=== PATIENT | female | born 1970 | race Caucasian/White ===

== ENCOUNTER 2017-11-16 09:46 | Emergency (ER) | payer OTHER ==
[~2017-11-16] VITALS: Ht 160 cm; Wt 90.7 kg
[~2017-11-16 09:46] MED LIST: BACTRIM DS TAB1 EACH PO; BENZONATATE200 M1 PO; DIAZEPAM10 MG PO; GILTUSS TR TAB1 EACH PO; HYDRODIURIL PO; LEVAQUIN750 MG PO; LOTREL 5-10 MG1 CAP; Mucinex 600 MG TABLET.SA PO; NEURONTIN300 MG PO; NORVASC 10 MG TAB PO; NORVASC 5MG TAB PO; PEPCID40 MG PO; PHENERGAN25 MG PO; PYRIDIUM100 M1 PO; TOPROL XL25 M1; TOPROL XL25 M1 PO; VASOTEC 20MG TAB PO
[2017-11-16] MEDS ORDERED: TUSSI-PRES LIQ118 ML PO (11:23)
[2017-11-16] MEDS ORDERED: NASONEX17 GM TOP (11:23)
== END 2017-11-17 14:29 | disposition home or self-care (01) ==
LOC: ER 09:46
DX: J32.8 Other chronic sinusitis (principal)

== ENCOUNTER 2018-12-01 08:56 | Outpatient (CLI) | payer OTHER ==
[~2018-12-01 08:56] MED LIST changes: +NASONEX17 GM TOP; +TUSSI-PRES LIQ118 ML PO
== END 2018-12-01 09:01 | disposition home or self-care (01) ==
LOC: LAB 08:56
DX: E11.9 Type 2 diabetes mellitus without complications (principal); I10 Essential (primary) hypertension; Z00.00 Encounter for general adult medical examination without abnormal findings; E78.49 Other hyperlipidemia

== ENCOUNTER 2018-12-01 09:46 | Outpatient (CLI) | payer OTHER | END 2018-12-01 09:56 | disposition home or self-care (01) | LOC: MAMO-SONO 09:46 | DX: N64.4 Mastodynia (principal); Z12.31 Encounter for screening mammogram for malignant neoplasm of breast ==

== ENCOUNTER → 2019-07-18 06:19 | Outpatient (CLI) | payer OTHER | END | disposition home or self-care (01) | LOC: LAB 06:19 | DX: E78.49 Other hyperlipidemia (principal); E55.9 Vitamin D deficiency, unspecified ==

== ENCOUNTER → 2019-07-21 07:56 | Outpatient (CLI) | payer OTHER | END | disposition home or self-care (01) | LOC: LAB 07:56 | DX: E78.49 Other hyperlipidemia (principal); E55.9 Vitamin D deficiency, unspecified; R42 Dizziness and giddiness; Z00.00 Encounter for general adult medical examination without abnormal findings ==

== ENCOUNTER 2019-09-07 15:00 | Outpatient (CLI) | payer OTHER | END 2019-09-07 15:06 | disposition home or self-care (01) | LOC: LAB 15:00 | DX: N39.0 Urinary tract infection, site not specified (principal) ==

== ENCOUNTER 2019-09-08 06:37 | Outpatient (CLI) | payer OTHER | END 2019-09-08 06:41 | disposition home or self-care (01) | LOC: LAB 06:37 | DX: E78.49 Other hyperlipidemia (principal); Z00.00 Encounter for general adult medical examination without abnormal findings; E55.9 Vitamin D deficiency, unspecified; E11.9 Type 2 diabetes mellitus without complications ==

== ENCOUNTER → 2020-03-25 07:37 | Outpatient (CLI) | payer OTHER | END | disposition home or self-care (01) | LOC: LAB 07:37 | PROVIDERS: ATTEND Internal Medicine Cardiovascular Disease | DX: E03.8 Other specified hypothyroidism (principal); E11.9 Type 2 diabetes mellitus without complications; I10 Essential (primary) hypertension; E78.2 Mixed hyperlipidemia ==

== ENCOUNTER 2020-03-28 09:31 | Outpatient (CLI) | payer OTHER | END 2020-03-28 16:12 | disposition home or self-care (01) | LOC: CERTIFICAD 09:31 | DX: Z11.1 Encounter for screening for respiratory tuberculosis (principal) ==

== ENCOUNTER 2020-05-11 12:00 | Outpatient (CLI) | payer OTHER | END 2020-05-11 16:10 | disposition home or self-care (01) | LOC: PPH VACUNA 12:00 | DX: Z23 Encounter for immunization (principal) ==

== ENCOUNTER → 2021-01-30 06:54 | Outpatient (CLI) | payer OTHER | END | disposition home or self-care (01) | LOC: LAB 06:54 | PROVIDERS: ATTEND Internal Medicine Cardiovascular Disease | DX: I10 Essential (primary) hypertension (principal); E11.9 Type 2 diabetes mellitus without complications; E03.9 Hypothyroidism, unspecified; E55.9 Vitamin D deficiency, unspecified ==

== ENCOUNTER → 2021-02-01 | Outpatient (CLI) | payer OTHER | END | disposition home or self-care (01) | LOC: MAMO-SONO 07:05 | PROVIDERS: ATTEND Internal Medicine Cardiovascular Disease | DX: N63.11 Unspecified lump in the right breast, upper outer quadrant (principal) ==

== ENCOUNTER 2021-05-28 08:00 | Outpatient (CLI) | payer OTHER | END 2021-05-28 08:30 | disposition home or self-care (01) | LOC: PPH VACUNA 08:00 | PROVIDERS: ATTEND Emergency Medicine Pediatric Emergency Medicine | DX: Z23 Encounter for immunization (principal) ==

== ENCOUNTER 2021-07-08 11:55 | Outpatient (CLI) | payer OTHER | END 2021-07-08 12:00 | disposition home or self-care (01) | LOC: PPH VACUNA 11:55 | PROVIDERS: ATTEND Emergency Medicine Pediatric Emergency Medicine | DX: Z23 Encounter for immunization (principal) ==

== ENCOUNTER 2021-07-25 06:52 | Outpatient (CLI) | payer OTHER | END 2021-07-25 07:15 | disposition home or self-care (01) | LOC: SONOGRAMA 06:52 | PROVIDERS: ATTEND Specialist | DX: N92.0 Excessive and frequent menstruation with regular cycle (principal) ==

== ENCOUNTER 2021-11-12 06:08 | Outpatient (CLI) | payer OTHER | END 2021-11-12 06:09 | disposition home or self-care (01) | LOC: LAB 06:08 | PROVIDERS: ATTEND Internal Medicine Cardiovascular Disease | DX: E03.9 Hypothyroidism, unspecified (principal); I10 Essential (primary) hypertension; E11.9 Type 2 diabetes mellitus without complications; E78.2 Mixed hyperlipidemia; E55.9 Vitamin D deficiency, unspecified ==

== ENCOUNTER 2022-01-27 07:08 | Outpatient (CLI) | payer OTHER | END 2022-01-27 07:12 | disposition home or self-care (01) | LOC: LAB 07:08 | PROVIDERS: ATTEND Preventive Medicine Occupational Medicine | DX: U07.1 COVID-19 (principal) ==

== ENCOUNTER 2022-01-30 08:51 | Outpatient (CLI) | payer OTHER | END 2022-01-30 08:54 | disposition home or self-care (01) | LOC: LAB 08:51 | DX: U07.1 COVID-19 (principal) ==

== ENCOUNTER 2022-03-03 08:36 | Emergency (ER) | payer OTHER ==
[~2022-03-03] VITALS: Ht 160 cm; Wt 89.8 kg
[2022-03-03] MEDS ORDERED: GLUMETZA1000 MG PO (08:56)
== END 2022-03-03 16:23 | disposition home or self-care (01) ==
LOC: ER 08:36
DX: S91.322A Laceration with foreign body, left foot, initial encounter (principal); W26.9XXA Contact with unspecified sharp object(s), initial encounter; Y93.9 Activity, unspecified; Y92.019 Unspecified place in single-family (private) house as the place of occurrence of the external cause

== ENCOUNTER 2022-04-23 08:21 | Outpatient (CLI) | payer OTHER ==
[~2022-04-23 08:21] MED LIST changes: +GLUMETZA1000 MG PO
== END 2022-04-23 08:26 | disposition home or self-care (01) ==
LOC: PPH VACUNA 08:21
PROVIDERS: ATTEND Emergency Medicine Pediatric Emergency Medicine
DX: Z23 Encounter for immunization (principal)

== ENCOUNTER 2022-09-18 09:07 | Outpatient (CLI) | payer OTHER ==
[2022-09-18] MEDS ORDERED: HYDRODIURIL12.5 MG (12:55)
[2022-09-18] MEDS ORDERED: PEPCID AC20 MG PO (12:56)
== END 2022-09-18 09:30 | disposition home or self-care (01) ==
LOC: MAMO-SONO 09:07
PROVIDERS: ATTEND Internal Medicine Cardiovascular Disease
DX: N63.11 Unspecified lump in the right breast, upper outer quadrant (principal)

== ENCOUNTER 2022-09-18 12:34 | Emergency (ER) | payer OTHER ==
[~2022-09-18] VITALS: Ht 160 cm; Wt 90.7 kg
[2022-09-18] MEDS ORDERED: HYDRODIURIL12.5 MG (12:55)
[2022-09-18] MEDS ORDERED: PEPCID AC20 MG PO (12:56)
== END 2022-09-18 16:31 | disposition home or self-care (01) ==
LOC: ER 12:34
DX: R10.13 Epigastric pain (principal); K21.9 Gastro-esophageal reflux disease without esophagitis; Z88.8 Allergy status to other drugs, medicaments and biological substances; E11.9 Type 2 diabetes mellitus without complications; Z79.84 Long term (current) use of oral hypoglycemic drugs; E78.00 Pure hypercholesterolemia, unspecified; I10 Essential (primary) hypertension

== ENCOUNTER → 2022-09-22 06:31 | Outpatient (CLI) | payer OTHER ==
[~2022-09-22 06:31] MED LIST changes: +HYDRODIURIL12.5 MG; +PEPCID AC20 MG PO
== END | disposition home or self-care (01) ==
LOC: LAB 06:31
PROVIDERS: ATTEND Internal Medicine Cardiovascular Disease
DX: I10 Essential (primary) hypertension (principal); E11.9 Type 2 diabetes mellitus without complications; E03.9 Hypothyroidism, unspecified; E78.2 Mixed hyperlipidemia; E55.9 Vitamin D deficiency, unspecified; R10.9 Unspecified abdominal pain

== ENCOUNTER 2022-11-05 05:00 | Day surgery (SDC) | payer OTHER | END 2022-11-05 10:35 | disposition home or self-care (01) | LOC: AMB-ENDOS 05:00 | PROVIDERS: ATTEND Colon & Rectal Surgery | DX: R19.5 Other fecal abnormalities (principal); K64.8 Other hemorrhoids; K21.9 Gastro-esophageal reflux disease without esophagitis; K29.60 Other gastritis without bleeding; K44.9 Diaphragmatic hernia without obstruction or gangrene; Z20.822 Contact with and (suspected) exposure to COVID-19 ==

== ENCOUNTER 2022-11-14 20:05 | Emergency (ER) | payer OTHER ==
[~2022-11-14] VITALS: Ht 160 cm; Wt 88.9 kg
== END 2022-11-14 20:56 | disposition home or self-care (01) ==
LOC: ER 20:05
DX: L29.9 Pruritus, unspecified (principal); Z88.5 Allergy status to narcotic agent

== ENCOUNTER 2022-12-05 06:19 | Outpatient (CLI) | payer OTHER | END 2022-12-05 06:20 | disposition home or self-care (01) | LOC: LAB 06:19 | PROVIDERS: ATTEND Colon & Rectal Surgery | DX: E03.9 Hypothyroidism, unspecified (principal); E11.9 Type 2 diabetes mellitus without complications; I10 Essential (primary) hypertension; E78.2 Mixed hyperlipidemia ==

== ENCOUNTER 2023-01-12 06:10 | Emergency (ER) | payer OTHER ==
[~2023-01-12] VITALS: Ht 160 cm; Wt 86.6 kg
[2023-01-12] MEDS ORDERED: RYBELSUS3 MG PO (06:17)
[2023-01-12] MEDS ORDERED: KETO10TA2 PO (07:32)
[2023-01-12] MEDS ORDERED: ORPHENADRINE C100 MG PO (07:32)
== END 2023-01-12 07:41 ==
LOC: ER 06:10
DX: S76.311A Strain of muscle, fascia and tendon of the posterior muscle group at thigh level, right thigh, initial encounter (principal); W01.0XXA Fall on same level from slipping, tripping and stumbling without subsequent striking against object, initial encounter; Y93.89 Activity, other specified; Y92.098 Other place in other non-institutional residence as the place of occurrence of the external cause; Y99.8 Other external cause status; Z88.5 Allergy status to narcotic agent

== ENCOUNTER 2023-04-21 06:05 | Outpatient (CLI) | payer OTHER ==
[~2023-04-21 06:05] MED LIST changes: +KETO10TA2 PO; +ORPHENADRINE C100 MG PO; +RYBELSUS3 MG PO
== END 2023-04-21 06:10 | disposition home or self-care (01) ==
LOC: LAB 06:05
PROVIDERS: ATTEND Internal Medicine Endocrinology, Diabetes & Metabolism
DX: E11.8 Type 2 diabetes mellitus with unspecified complications (principal); E78.00 Pure hypercholesterolemia, unspecified; Z88.5 Allergy status to narcotic agent; Z88.6 Allergy status to analgesic agent

== ENCOUNTER 2024-04-27 22:37 | Emergency (ER) | payer OTHER ==
[~2024-04-27] VITALS: Ht 160 cm; Wt 78.5 kg
[2024-04-28] MEDS ORDERED: FAMOTIDINE/PF 20 MG/2 ML VIAL IV PUSH STA ×2 (00:34→07:00)
[2024-04-28] MEDS ORDERED: MAG HYDROX/ALUMINUM HYD/SIMETH 30 ML BLIST.PACK PO STA (00:34)
[2024-04-28] MEDS ORDERED: MAG HYDROX/ALUMINUM HYD/SIMETH 30 ML BLIST.PACK PO ONE (00:45)
[2024-04-28] MEDS ORDERED: FAMOTIDINE/PF 20 MG/2 ML VIAL ONE ×2 (00:45→07:14)
[2024-04-28 01:13] LABS: URINE APPEARANCE Clear; URINE BILIRRUBIN Negative (NEGATIVE); URINE BLOOD Negative; URINE COLOR Yellow; URINE GLUCOSE Negative (NEGATIVE); URINE KETONE Negative (NEGATIVE); URINE LEUKOCYTE Negative; URINE NITRATE Negative; URINE PROTEIN Negative (NEGATIVE); URINE UROBILINOGEN 0.2 E.U./dl
[2024-04-28 01:17] LABS: URINE BACTERIA 483.8 uL (0.0-1933); URINE EPITHELIAL CELLS 9.5 uL (0.0-38.8); URINE RBC 23.6 uL (0.0-20.8); URINE WBC 4.3 uL (0.0-23.2)
[2024-04-28 01:49] LABS: URINE CAST 0.15 uL (0.0-1.40)
[2024-04-28 01:55] LABS: HEMATOCRIT 38.4 % (36.0-45.00); HEMOGLOBIN 12.9 g/dL (12.0-15.00); MEAN CELL VOLUME 82.4 fL (80.00-100.00); MEAN CORPUSCULAR HEMOGLOBIN 27.8 pg (27.00-32.0); MEAN CORPUSCULAR HGB CONC 33.7 g/dl (32.0-36.0); PLATELET COUNT 445 K/uL (150-450); RED BLOOD COUNT 4.66 M/uL (4.00-6.00)
[2024-04-28 02:00] LABS: BILIRUBIN TOTAL 0.41 mg/dL (0.3-1.2); CALCIUM 9.8 mg/dL (8.5-10.1); CREATININE SERUM 0.9 mg/dL (0.55-1.02); GFR 66.01; GLOBULINA 4.3 G/DL (2.4-3.5); POTASSIUM 3.49 mEq/L (3.5-5.1); TOTAL PROTEIN 8.3 gm/dL (6.4-8.2)
[2024-04-28] MEDS ORDERED: KETOROLAC TROMETHAMINE 30 MG VIAL IV STA (04:52)
[2024-04-28] MEDS ORDERED: KETOROLAC TROMETHAMINE 30 MG VIAL ONE (04:57)
[2024-04-28] MEDS ORDERED: 0.9 % SODIUM CHLORIDE 1,000 ML IV ONE (07:00)
[2024-04-28 07:33] VITALS: BP 136/810; O2SAT 100
[2024-04-28 08:04] LABS: AMYLASE 29 U/L (25-115); LIPASE 47 U/L (13-75)
== END 2024-04-28 10:30 | disposition home or self-care (01) ==
LOC: ER 22:37
PROVIDERS: General Practice
DX: R10.13 Epigastric pain (principal); Z20.822 Contact with and (suspected) exposure to COVID-19; Z88.8 Allergy status to other drugs, medicaments and biological substances

== ENCOUNTER 2024-05-27 12:00 | Outpatient (CLI) | payer OTHER | END 2024-05-27 12:15 | disposition home or self-care (01) | LOC: PPH VACUNA 12:00 | PROVIDERS: ATTEND Emergency Medicine Pediatric Emergency Medicine | DX: Z23 Encounter for immunization (principal) ==

== ENCOUNTER 2024-06-21 02:30 | Emergency (ER) | payer OTHER ==
[~2024-06-21] VITALS: Ht 160 cm; Wt 77.1 kg
[2024-06-21] MEDS ORDERED: VASOTEC10 MG PO (02:36)
[2024-06-21] MEDS ORDERED: RINGERS SOLUTION,LACTATED 1,000 ML IV STA (04:17)
[2024-06-21] MEDS ORDERED: KETOROLAC TROMETHAMINE 30 MG VIAL IV STA (04:18)
[2024-06-21] MEDS ORDERED: FAMOtidine 10 MG/ML (4ML VIAL) IV PUSH STA (04:19)
[2024-06-21] MEDS ORDERED: ONDANSETRON HCL 2 MG/ML VIAL IV STA (04:19)
[2024-06-21] MEDS ORDERED: HYOSCYAMINE SULFATE 0.125 MG TAB.SUBL SL ONE (04:30)
[2024-06-21 05:02] LABS: HEMOGLOBIN 13.2 g/dL (12.0-15.00); MEAN CELL VOLUME 83.2 fL (80.00-100.00); MEAN CORPUSCULAR HEMOGLOBIN 27.6 pg (27.00-32.0); MEAN CORPUSCULAR HGB CONC 33.1 g/dl (32.0-36.0); PLATELET COUNT 311 K/uL (150-450); RED CELL DISTRIBUTION WIDTH 15.4 % (11.5-14.5)
[2024-06-21 05:09] LABS: INR 1.07; PARTIAL THROMBOPLASTIN TIME 27.3 SECONDS (22.0-34.0); PROTHROMBIN TIME 11.6 SECONDS (9.0-11.5)
[2024-06-21 05:21] LABS: ALBUMIN 3.1 gm/dL (3.4-5.0); BILIRUBIN TOTAL 0.44 mg/dL (0.3-1.2); CALCIUM 8.4 mg/dL (8.5-10.1); CREATININE SERUM 0.59 mg/dL (0.55-1.02); GFR 107.46; POTASSIUM 3.31 mEq/L (3.5-5.1); TOTAL PROTEIN 7.1 gm/dL (6.4-8.2)
[2024-06-21 08:25] LABS: PH,URINE 5.5 (5.0-8.0); URINE APPEARANCE Cloudy; URINE BILIRRUBIN Negative (NEGATIVE); URINE BLOOD Negative; URINE COLOR Yellow; URINE GLUCOSE Negative (NEGATIVE); URINE KETONE Negative (NEGATIVE); URINE LEUKOCYTE Negative; URINE NITRATE Negative; URINE PROTEIN Trace (NEGATIVE)
[2024-06-21 08:31] LABS: URINE RBC 79.5 uL (0.0-20.8); URINE WBC 24.1 uL (0.0-23.2)
[2024-06-21 09:04] LABS: URINE BACTERIA > 9821.5 uL (0.0-1933); URINE CAST 0.91 uL (0.0-1.40)
== END 2024-06-21 11:08 | disposition home or self-care (01) ==
LOC: ER 02:31
DX: R10.32 Left lower quadrant pain (principal); Z91.013 Allergy to seafood; Z88.8 Allergy status to other drugs, medicaments and biological substances; K59.00 Constipation, unspecified; K29.70 Gastritis, unspecified, without bleeding

== ENCOUNTER 2024-11-03 08:52 | Emergency (ER) | payer OTHER ==
[~2024-11-03] VITALS: Ht 160 cm; Wt 77.6 kg
[~2024-11-03 08:52] MED LIST changes: +VASOTEC10 MG PO
[2024-11-03] MEDS ORDERED: ACETAMINOPHEN 500 MG GEL..CAP PO STA (10:03)
[2024-11-03] MEDS ORDERED: GUAIFENESIN 200 MG/10 ML BLIST.PACK PO STA (10:03)
[2024-11-03] MEDS ORDERED: DEXAMETHASONE SODIUM PHOSPHATE 4 MG/ML VIAL IM STA (10:03)
[2024-11-03 10:43] LABS: HEMATOCRIT 38.6 % (36.0-45.00); MEAN CELL VOLUME 85.2 fL (80.00-100.00); MEAN CORPUSCULAR HEMOGLOBIN 28.8 pg (27.00-32.0); MEAN CORPUSCULAR HGB CONC 33.8 g/dl (32.0-36.0); PLATELET COUNT 296 K/uL (150-450); RED BLOOD COUNT 4.53 M/uL (4.00-6.00); RED CELL DISTRIBUTION WIDTH 15.2 % (11.5-14.5)
[2024-11-03] MEDS ORDERED: ACETAMINOPHEN500 M1 PO (12:19)
[2024-11-03] MEDS ORDERED: ATARAX25 MG PO (12:19)
[2024-11-03] MEDS ORDERED: CETIRIZINE HCL5 M1 PO (12:19)
[2024-11-03] MEDS ORDERED: ZITHROMAX500 MG PO (12:19)
[2024-11-03] MEDS ORDERED: MUCINEX DM ER1 EAC1 PO (12:19)
== END 2024-11-03 12:52 | disposition home or self-care (01) ==
LOC: ER 08:52
PROVIDERS: General Practice
DX: B34.9 Viral infection, unspecified (principal); J06.9 Acute upper respiratory infection, unspecified; Z91.013 Allergy to seafood; Z88.8 Allergy status to other drugs, medicaments and biological substances; E05.80 Other thyrotoxicosis without thyrotoxic crisis or storm; Z20.822 Contact with and (suspected) exposure to COVID-19

== ENCOUNTER 2025-04-04 11:18 | Emergency (ER) | payer OTHER ==
[~2025-04-04] VITALS: Ht 160 cm; Wt 69.9 kg
[~2025-04-04 11:18] MED LIST changes: +ACETAMINOPHEN500 M1 PO; +ATARAX25 MG PO; +CETIRIZINE HCL5 M1 PO; +MUCINEX DM ER1 EAC1 PO; +ZITHROMAX500 MG PO
[2025-04-04] MEDS ORDERED: NORVASC5 MG (11:31)
[2025-04-04 11:55] LABS: BASO % 1.5 % (0.1-1.2); EOS # 0.27 (0.04-0.54); EOS % 3.3 % (0.7-7.0); LYMPH # 2.91 (1.18-3.74); LYMPH % 35.7 % (19.3-53.1); MEAN PLATELET VOLUME 9.30 fl (9.4-12.4); MONO # 0.48 (0.24-0.82); MONO % 5.9 % (4.7-12.5); NEUT # 4.36 (1.56-6.13); NEUT % 53.5 % (34.0-71.1); RED CELL DISTRIBUTION WIDTH 14.4 % (11.6-14.4)
[2025-04-04 12:17] LABS: ALT/SGPT 43.0 U/L (12-78); AST/SGOT 24.0 U/L (15-37); BILIRUBIN TOTAL 0.57 mg/dL (0.3-1.2); BUN CREA RATIO 21.0 (7.0-25.0); CREATININE SERUM 1.07 mg/dL (0.55-1.02); GFR 53.85; GLOBULINA 4.5 G/DL (2.4-3.5); GLUCOSE FASTING 101.0 mg/dL (65-100); OSMOLALITY SERUM 287.0 MOSM/KG (275-295)
[2025-04-04] MEDS ORDERED: 0.9 % SODIUM CHLORIDE 1,000 ML IV ONE (12:45)
[2025-04-04 13:08] LABS: COVID-19 AG NEGATIVE (NEGATIVE)
== END 2025-04-04 14:43 | disposition home or self-care (01) ==
LOC: ER 11:18
PROVIDERS: General Practice
DX: E86.0 Dehydration (principal); R07.89 Other chest pain; Z20.822 Contact with and (suspected) exposure to COVID-19; I10 Essential (primary) hypertension; E11.9 Type 2 diabetes mellitus without complications; Z79.84 Long term (current) use of oral hypoglycemic drugs; Z88.5 Allergy status to narcotic agent

== ENCOUNTER 2025-06-18 14:27 | Emergency (ER) | payer OTHER ==
[~2025-06-18] VITALS: Ht 160 cm; Wt 65.8 kg
[~2025-06-18 14:27] MED LIST changes: +NORVASC5 MG
[2025-06-18] MEDS ORDERED: ELVITEG/COB/EMTRI/TENOFO DISOP 1 UDTAB TABLET PO ONE (15:45)
[2025-06-18 16:08] LABS: BASO % 1.2 % (0.1-1.2); EOS # 0.14 (0.04-0.54); EOS % 1.3 % (0.7-7.0); LYMPH # 3.44 (1.18-3.74); LYMPH % 32.5 % (19.3-53.1); MEAN PLATELET VOLUME 9.30 fl (9.4-12.4); MONO # 0.65 (0.24-0.82); MONO % 6.1 % (4.7-12.5); NEUT # 6.20 (1.56-6.13); NEUT % 58.7 % (34.0-71.1); RED CELL DISTRIBUTION WIDTH 14.0 % (11.6-14.4)
[2025-06-18 16:46] LABS: ALT/SGPT 56.0 U/L (12-78); AST/SGOT 23.0 U/L (15-37); BILIRUBIN TOTAL 0.49 mg/dL (0.3-1.2); BUN CREA RATIO 23.0 (7.0-25.0); CREATININE SERUM 1.32 mg/dL (0.55-1.02); GFR 42.26; GLOBULINA 3.7 G/DL (2.4-3.5); GLUCOSE FASTING 114.0 mg/dL (65-100); OSMOLALITY SERUM 290.0 MOSM/KG (275-295)
== END 2025-06-18 21:27 | disposition home or self-care (01) ==
LOC: ER 14:27
PROVIDERS: General Practice
DX: Z29.81 Encounter for HIV pre-exposure prophylaxis (principal); E11.9 Type 2 diabetes mellitus without complications; Z79.84 Long term (current) use of oral hypoglycemic drugs; I10 Essential (primary) hypertension; Z88.8 Allergy status to other drugs, medicaments and biological substances

== ENCOUNTER 2025-07-14 09:00 | Outpatient (CLI) | payer OTHER | END 2025-07-14 09:10 | disposition home or self-care (01) | LOC: PPH VACUNA 09:00 | PROVIDERS: ATTEND Emergency Medicine Pediatric Emergency Medicine | DX: Z23 Encounter for immunization (principal) ==